=== PATIENT | female | born 1950 | race African-American/Black ===

== ENCOUNTER → 2018-11-07 | Outpatient (CLI) | payer OTHER ==
--- NOTE | 2018-11-08 16:24 | Diagnostic Imaging Report ---
#[id number] - [id number] #BILATERAL DIGITAL SCREENING MAMMOGRAM WITH CAD: 11/07/2018 CLINICAL: Routine screening. Comparison is made to exam dated: 10/25/2017 mammogram - [facility]. Current study contains 4 films. The tissue of both breasts is predominantly fatty. Current study was also evaluated with a Computer Aided Detection (CAD) system. There are benign calcifications in the left breast. No significant masses, calcifications, or other findings are seen in either breast. There has been no significant interval change. IMPRESSION: BENIGN There is no mammographic evidence of malignancy. A 1 year screening mammogram is recommended. The patient will be notified by letter of the results. Alex gan/[email or web address]:11/08/2018 12:55:22 [employer] Operator: Yuki MALLORY)(Jc), [facility] letter sent: Compared to Prior B9 Mammogram BI-RADS: 2 Benign
== END ==
LOC: MAMMO 09:30
PROVIDERS: ATTEND Internal Medicine
DX: Z12.31 Encounter for screening mammogram for malignant neoplasm of breast (principal)
CPT/HCPCS: 77067

== ENCOUNTER → 2020-12-06 | Outpatient (CLI) | payer OTHER | LOC: MAMMO 10:08 | PROVIDERS: ATTEND Internal Medicine | DX: Z12.31 Encounter for screening mammogram for malignant neoplasm of breast (principal) | CPT/HCPCS: 77067 ==

== ENCOUNTER → 2021-12-07 | Outpatient (CLI) | payer OTHER | LOC: MAMMO 09:34 | PROVIDERS: ATTEND Internal Medicine | DX: Z12.31 Encounter for screening mammogram for malignant neoplasm of breast (principal); Z13.820 Encounter for screening for osteoporosis | CPT/HCPCS: 77067; 77080 ==

== ENCOUNTER → 2022-12-19 | Outpatient (CLI) | payer OTHER | LOC: MAMMO 09:49 | PROVIDERS: ATTEND Internal Medicine | DX: Z12.31 Encounter for screening mammogram for malignant neoplasm of breast (principal) | CPT/HCPCS: 77067 ==

== ENCOUNTER 2024-04-25 15:35 | Inpatient (IN) | payer MEDICARE, OTHER ==
[~2024-04-25] VITALS: Ht 147.3 cm; Wt 58.5 kg
[2024-04-25 17:35] LABS: BASOPHILS % 0.6 % (0.0-1.0); EOSINOPHILS # (AUTO) 0.1 (0.0-0.4); EOSINOPHILS % 0.8 % (0.0-6.0); HEMATOCRIT 38.5 % (34.2-44.1); HEMOGLOBIN 12.3 g/dL (12.0-16.0); LYMPHOCYTES # (AUTO) 2.1 (1.0-3.2); LYMPHOCYTES % 32.9 % (18.0-39.1); MEAN CORPUSCULAR HEMOGLOBIN 29.1 pg (28-32); MEAN CORPUSCULAR HGB CONC 31.9 g/dL (31-35); MONOCYTES # (AUTO) 0.5 (0.2-0.8); MONOCYTES % 7.9 % (4.4-11.3); NEUTROPHILS # (AUTO) 3.7 (2.1-6.9); NEUTROPHILS % 57.5 % (38.7-80.0); PLATELET COUNT 243 x10e3/uL (140-360); RED BLOOD COUNT 4.23 x10e6/uL (3.6-5.1); RED CELL DISTRIBUTION WIDTH 12.8 % (11.7-14.4); WHITE BLOOD COUNT 6.36 x10e3/uL (4.8-10.8)
[2024-04-25 17:41] LABS: INR 1.04; PARTIAL THROMBOPLASTIN TIME 25.8 seconds (23.8-35.5); PROTHROMBIN TIME 14.3 seconds (11.9-14.5)
[2024-04-25 17:48] LABS: ALBUMIN 3.9 g/dL (3.5-5.0); ALBUMIN/GLOBULIN RATIO 1.1 (0.8-2.0); ANION GAP 13.1 mmol/L (8-16); BILIRUBIN,TOTAL 0.5 mg/dL (0.2-1.2); CALCIUM 9.5 mg/dL (8.4-10.2); CREATININE, SERUM 0.69 mg/dL (0.57-1.11); POTASSIUM 4.1 mmol/L (3.5-5.1); TOTAL PROTEIN 7.5 g/dL (6.5-8.1)
[2024-04-25] MEDS ORDERED: IOPAMIDOL 370 MG/ML 100 ML INFUS..BTL INJ ONE (18:27)
[2024-04-25] MEDS ORDERED: SODIUM CHLORIDE FLUSH 10 ML SYR INJ PRN (21:30)
[2024-04-25 21:45] VITALS: PULSE 64; RESP 18; O2SAT 99
[2024-04-25 22:30] VITALS: PULSE 72; RESP 16; TEMP 98.9
[2024-04-25] MEDS ORDERED: METOPROLOL SUCC50 MG PO (23:24)
[2024-04-25] MEDS ORDERED: LISINOPRIL10 MG PO (23:24)
[2024-04-25] MEDS ORDERED: FAMOTIDINE20 MG PO (23:24)
[2024-04-25] MEDS ORDERED: ATORVASTATIN CA20 MG PO (23:24)
[2024-04-25] MEDS ORDERED: ELIQUIS5 MG PO (23:24)
[2024-04-25 23:30] VITALS: BP 111/67; PULSE 83; RESP 17; TEMP 98.5; O2SAT 100
[2024-04-26] VITALS (11 sets, daily range): BP systolic 100–122; BP diastolic 60–72; PULSE 62–83; RESP 16–18; TEMP 97.6–98.5; O2SAT 96–100
[2024-04-26 01:20] LABS: HEMATOCRIT 35.7 % (34.2-44.1); HEMOGLOBIN 11.5 g/dL (12.0-16.0)
[2024-04-26 07:31] LABS: HEMATOCRIT 31.7 % (34.2-44.1); HEMOGLOBIN 10.3 g/dL (12.0-16.0)
[2024-04-26] MEDS ORDERED: ALBUTEROL/IPRATROPIUM 3 ML NEB NEB PRN (12:00)
[2024-04-26] MEDS ORDERED: ONDANSETRON HCL INJ 2MG/ML 2ML 2 MG/ML VIAL IV PRN (12:00)
[2024-04-26] MEDS ORDERED: METOPROLOL TARTRATE INJ 1 MG/ML VIAL IV PRN (12:00)
[2024-04-26] MEDS: ATORVASTATIN 20 MG TAB PO SCH (20:45)
[2024-04-26 21:05] LABS: HEMATOCRIT 35.3 % (34.2-44.1)
[2024-04-27] VITALS (10 sets, daily range): BP systolic 108–120; BP diastolic 60–72; PULSE 73–98; RESP 17–18; TEMP 97.5–98.5; O2SAT 97–100
[2024-04-27 07:23] LABS: BASOPHILS % 0.4 % (0.0-1.0); EOSINOPHILS # (AUTO) 0.1 (0.0-0.4); EOSINOPHILS % 2.4 % (0.0-6.0); HEMATOCRIT 33.2 % (34.2-44.1); HEMOGLOBIN 10.3 g/dL (12.0-16.0); LYMPHOCYTES % 44.7 % (18.0-39.1); MEAN CORPUSCULAR HEMOGLOBIN 28.5 pg (28-32); MEAN CORPUSCULAR VOLUME 91.7 fL (81-99); MONOCYTES # (AUTO) 0.6 (0.2-0.8); MONOCYTES % 12.4 % (4.4-11.3); NEUTROPHILS # (AUTO) 1.8 (2.1-6.9); NEUTROPHILS % 39.9 % (38.7-80.0); PLATELET COUNT 203 x10e3/uL (140-360); RED BLOOD COUNT 3.62 x10e6/uL (3.6-5.1); RED CELL DISTRIBUTION WIDTH 12.7 % (11.7-14.4); WHITE BLOOD COUNT 4.52 x10e3/uL (4.8-10.8)
[2024-04-27 08:01] LABS: CALCIUM 10.3 mg/dL (8.4-10.2); CREATININE, SERUM 0.7 mg/dL (0.57-1.11)
[2024-04-27] MEDS: LISINOPRIL 20 MG TAB PO SCH (08:52)
[2024-04-27] MEDS: FAMOTIDINE 20 MG TAB PO SCH (08:52)
[2024-04-27] MEDS: METOPROLOL SUCCINATE 50 MG TAB XL PO SCH (08:53)
[2024-04-27] MEDS: PEG (High)/E-LYTE SOLN 4,000 ML BTL PO ONE (14:41)
[2024-04-28] VITALS (10 sets, daily range): BP systolic 93–134; BP diastolic 52–79; PULSE 83–107; RESP 16–20; TEMP 97.5–98.8; O2SAT 96–100
[2024-04-28 05:53] LABS: BASOPHILS # (AUTO) 0.1 (0.0-0.1); BASOPHILS % 0.7 % (0.0-1.0); EOSINOPHILS # (AUTO) 0.1 (0.0-0.4); EOSINOPHILS % 1.5 % (0.0-6.0); HEMATOCRIT 34.4 % (34.2-44.1); HEMOGLOBIN 10.2 g/dL (12.0-16.0); LYMPHOCYTES # (AUTO) 2.5 (1.0-3.2); LYMPHOCYTES % 37.6 % (18.0-39.1); MEAN CORPUSCULAR HEMOGLOBIN 29.1 pg (28-32); MEAN CORPUSCULAR HGB CONC 29.7 g/dL (31-35); MEAN CORPUSCULAR VOLUME 98.3 fL (81-99); MONOCYTES # (AUTO) 0.9 (0.2-0.8); MONOCYTES % 13.1 % (4.4-11.3); NEUTROPHILS # (AUTO) 3.1 (2.1-6.9); NEUTROPHILS % 46.8 % (38.7-80.0); PLATELET COUNT 185 x10e3/uL (140-360); RED CELL DISTRIBUTION WIDTH 13.1 % (11.7-14.4)
[2024-04-28 06:27] LABS: ANION GAP 8.9 mmol/L (8-16); CREATININE, SERUM 0.66 mg/dL (0.57-1.11); POTASSIUM 3.9 mmol/L (3.5-5.1)
[2024-04-28 07:08] LABS: CALCIUM 9.6 mg/dL (8.4-10.2)
[2024-04-28] MEDS ORDERED: PROPOFOL IV EMULSION 10 MG/ML 20 ML VIAL ONE (11:48)
[2024-04-28] MEDS ORDERED: LIDOCAINE HCL 2% LOCAL INJ 5 ML SDV VIAL INJ ONE (11:48)
[2024-04-29] VITALS (7 sets, daily range): BP systolic 93–120; BP diastolic 50–70; PULSE 79–99; RESP 17–20; TEMP 97.8–98.9; O2SAT 98–100
[2024-04-29 06:29] LABS: HEMOGLOBIN 9.3 g/dL (12.0-16.0)
[2024-04-29] MEDS ORDERED: TOPROL XL50 MG PO (09:41)
[2024-04-29] MEDS ORDERED: PANTOPRAZOLE SO40 MG PO (09:41)
[2024-04-29] MEDS: SODIUM CHLORIDE 0.9% 500ML 500 ML IV ONE ×2 (10:09→13:15)
[2024-04-30] MEDS ORDERED: METOPROLOL SUCCINATE 50 MG TAB XL PO SCH (09:00)
== END 2024-04-29 16:57 | disposition home or self-care (01) | DRG 378 ==
LOC: ER 17:05 → ERHOLD 21:20 → MED/SURG3 23:15 → OBSVTOIN 04-26 11:54
PROVIDERS: ADMIT Internal Medicine; ATTEND Internal Medicine
PROC: 0DJD8ZZ Inspection of Lower Intestinal Tract, Via Natural or Artificial Opening Endoscopic (ICD-10-PCS; principal; 2024-04-28 14:38)
DX: K57.31 Diverticulosis of large intestine without perforation or abscess with bleeding (principal); D62 Acute posthemorrhagic anemia; T45.515A Adverse effect of anticoagulants, initial encounter; D18.00 Hemangioma unspecified site; K64.8 Other hemorrhoids; I10 Essential (primary) hypertension; E78.5 Hyperlipidemia, unspecified; I48.91 Unspecified atrial fibrillation; D50.0 Iron deficiency anemia secondary to blood loss (chronic); D25.9 Leiomyoma of uterus, unspecified; Z79.01 Long term (current) use of anticoagulants; Z11.52 Encounter for screening for COVID-19
CPT/HCPCS: 36415; 45378; 74174; 80048; 80053; 85014; 85018; 85025; 85610; 85730; 86850; 86900; 94799; 99284; G0378; J2001; J7040; Q9967; U0002

== ENCOUNTER → 2025-01-22 | Outpatient (REF) | payer MEDICARE ==
[~2025-01-22] MED LIST: ATORVASTATIN CA20 MG PO; ELIQUIS5 MG PO; FAMOTIDINE20 MG PO; LISINOPRIL10 MG PO; METOPROLOL SUCC50 MG PO; PANTOPRAZOLE SO40 MG PO; TOPROL XL50 MG PO
== END ==
LOC: MAMMO 10:26
PROVIDERS: ATTEND Internal Medicine
DX: Z12.31 Encounter for screening mammogram for malignant neoplasm of breast (principal)
CPT/HCPCS: 77067